=== PATIENT | female | born 1965 | race Caucasian/White ===

== ENCOUNTER 2024-09-27 00:06 | Emergency (ER) | payer OTHER ==
[~2024-09-27] VITALS: Ht 175.3 cm; Wt 109.1 kg
[2024-09-27 02:59] VITALS: BP 123/85; PULSE 84; RESP 18; TEMP 98; O2SAT 98
== END 2024-09-27 02:45 | disposition home or self-care (01) ==
LOC: ER 00:07
DX: S80.01XA Contusion of right knee, initial encounter (principal); M25.461 Effusion, right knee; W18.30XA Fall on same level, unspecified, initial encounter; Y93.02 Activity, running; Y92.89 Other specified places as the place of occurrence of the external cause; Y99.0 Civilian activity done for income or pay
CPT/HCPCS: 29505; 73564; 99284